=== PATIENT | female | born 1960 | race Asian ===

== ENCOUNTER 2018-02-10 06:41 | Day surgery (SDC) | payer BC ==
[~2018-02-10 06:41] MED LIST: CEFAZOLIN 2 GM/50 ML (PMX) 50 ML IVPB; SOD CHLORIDE 0.9% 1,000 ML IV
[2018-02-10] MEDS ORDERED: CEFAZOLIN 1 GM INJ (07:00)
[2018-02-10] MEDS ORDERED: ROPIVACAINE 0.2% 20 ML VIAL (08:17)
[2018-02-10] MEDS ORDERED: ROCURONIUM 50 MG INJ ×2 (08:17→09:20)
[2018-02-10] MEDS ORDERED: PROPOFOL 20 ML (08:17)
[2018-02-10] MEDS ORDERED: MIDAZOLAM 1 MG/ML 2 ML INJ (08:17)
[2018-02-10] MEDS ORDERED: FENTAnyl 50 MCG/ML VIAL (08:17)
[2018-02-10] MEDS ORDERED: OXYCODONE/ACETAMINOPHEN (5/325) TAB PO (08:30)
[2018-02-10] MEDS ORDERED: FENTAnyl 50 MCG/ML VIAL IV (08:30)
[2018-02-10] MEDS ORDERED: HYDROmorphONE 1 MG/5 ML IV SYRINGE IV ×2 (08:30)
[2018-02-10] MEDS ORDERED: ONDANSETRON 4 MG INJ IV (08:30)
[2018-02-10] MEDS ORDERED: LABETALOL HCL 20MG INJ IV (08:30)
[2018-02-10] MEDS ORDERED: EPHEDrine SULFATE 50 MG/5 ML SYG IV (08:30)
[2018-02-10] MEDS ORDERED: MEPERIDINE 25 MG INJ IV (08:30)
[2018-02-10] MEDS ORDERED: hydrALAzine 20 MG INJ IV (08:30)
[2018-02-10] MEDS ORDERED: DIPHENHYDRAMINE 50 MG INJ IV (08:30)
[2018-02-10] MEDS ORDERED: METOCLOPRAMIDE 10 MG INJ IV (08:30)
[2018-02-10] MEDS ORDERED: DEXAMETHASONE 4 MG/ML 1 ML INJ (09:06)
[2018-02-10] MEDS ORDERED: ACETAMINOPHEN 1000MG/100ML IV 100 ML (09:06)
[2018-02-10] MEDS ORDERED: METOCLOPRAMIDE 10 MG INJ (09:06)
[2018-02-10] MEDS ORDERED: ONDANSETRON 4 MG INJ (09:06)
[2018-02-10] MEDS ORDERED: KETOROLAC 30 MG INJ (09:07)
[2018-02-10] MEDS ORDERED: SUGAMMADEX SODIUM 200 MG/2 ML VIAL IV (09:07)
[2018-02-10] MEDS ORDERED: HYDROCODONE/APAP (5/325) TAB PO (10:00)
[2018-02-10] MEDS: IPRATROPIUM (NEB) 0.5 MG/2.5 ML AMP HHN (10:29)
[2018-02-10] MEDS: ALBUTEROL 0.083% (NEB) 2.5 MG/3 ML AMP HHN (10:29)
[2018-02-10] MEDS: FENTAnyl 50 MCG/ML VIAL IV ×2 (10:56→10:59)
== END 2018-02-10 11:55 | disposition home or self-care (01) ==
LOC: SDS 06:41
DX: K80.10 Calculus of gallbladder with chronic cholecystitis without obstruction (principal); E78.5 Hyperlipidemia, unspecified; E11.9 Type 2 diabetes mellitus without complications; J45.909 Unspecified asthma, uncomplicated; I10 Essential (primary) hypertension
CPT/HCPCS: 47562; 82962; 88304; 94664